=== PATIENT | male | born 1955 | race Caucasian/White ===

== ENCOUNTER 2017-06-24 06:30 | Inpatient (IN) ==
[2017-06-24] MEDS ORDERED: CARDIZEM ONE (06:35)
[2017-06-24] MEDS ORDERED: ASPIRIN PO STA (06:35)
[2017-06-24 06:44] LABS: MANUAL DIFF NEEDED? NO
[2017-06-24] MEDS ORDERED: CARDIZEM IV ONE ×2 (06:44→08:39)
[2017-06-24] MEDS: CARDIZEM 100 MG/NS 100 MG/100 ML IVPB IV SCH (06:45)
[2017-06-24 06:46] LABS: BASO% 0.5 % (0.0-0.8); EOS# 0.06 X1000 (0.0-0.7); EOS% 0.7 % (0.0-10.0); HEMATOCRIT 44.2 % (42.0-52.0); HEMOGLOBIN 15.7 g/dL (14.0-18.0); LYMPH# 1.53 X1000 (1.2-3.4); LYMPH% 18.1 % (20.5-51.1); MCH 34.6 PG (27-31); MCHC 35.5 g/dL (33-37); MCV 97.4 FL (81-99); MONO# 0.68 X1000 (0.11-0.59); MPV 11.8 FL (7.4-10.4); NEUT% 72.7 % (42.2-75.2); PLT 136 X1000 (130-400); RBC 4.54 XMIL (4.7-6.1)
[2017-06-24 07:02] LABS: AGAP 19; ALKALINE PHOSPHATASE 145 U/L (32-122); BUN 13 mg/dL (8-22); CALCIUM 9.3 mg/dL (8.8-10.2); CHLORIDE 98 mmol/L (98-107); COSMO 273; GOT 158 U/L (10-34); GPT 110 U/L (10-44); MAGNESIUM 1.6 mg/dL (1.5-2.7); SODIUM 136 mmol/L (136-145); TCO2 19 mmol/L (25-35); TOTAL PROTEIN 6.9 g/dL (6.3-8.3)
[2017-06-24 07:03] LABS: CK PROFILE 264 U/L (24-204)
[2017-06-24 07:11] LABS: INR 8.19; PROTIME 98.3 Seconds (9.2-11.7); PTT 43.7 Seconds (22.0-36.0)
[2017-06-24] MEDS ORDERED: VITAMIN K SUBQ ONE (07:14)
[2017-06-24 07:23] LABS: CK INDEX 2.5 (0.0-2.5); CK-MB 6.68 ng/mL (0.0-5.0)
--- NOTE | 2017-06-24 07:46 | PROVIDER DOCUMENTATION ---
HPI-Cardiac General - General Chief Complaint: Shortness of Breath Stated Complaint: sob Time Seen by Provider: 06/24/17 06:30 Source: patient, EMS Unable to obtain history due to:: urgency Allergies/Adverse Reactions: Patient Allergies Allergy/AdvReac Type Severity Reaction Status Date / Time No Known Allergies Allergy Verified 06/24/17 06:39 Home Medications: Home Medication List Medication Instructions Recorded Confirmed Last Taken Type Warfarin [Coumadin] 2 mg PO DAILY 08/24/14 06/24/17 06/23/17 History Metoprolol [Lopressor] 50 mg PO BID 11/16/16 06/24/17 06/23/17 History - History of Present Illness-Cardiac Nature of Presenting Problem: Patient has a history of dilated cardiomyopathy, pulmonary hypertension, and valvular heart disease. He presents with severe dyspnea. He denies any chest pain. He denies any trauma. He says he simply couldn't catch his breath. He sees Dr. Mccoy. Severity in ED: severe Onset/Duration: 1-3 hours ago Context/Activities at Onset: reports: none Modifying Factors: improves with: nothing Palpitation Quality: irregular History of arrythmia: reports: A-Fib Recent use of:: reports: no stimulants Nitro Today/Relief: reports: no nitro taken today Aspirin Treatment Today: reports: no aspirin today Prior Chest Pain/Cardiac Workup: reports: no prior chest pain Associated Symptoms: reports: denies symptoms Similar Symptoms Previously?: Yes Recently Seen Here or By Another Healthcare Provider: No Review of Systems - Adult - REVIEW OF SYSTEMS - ADULT Constitutional: reports: no symptoms reported Eyes: reports: no symptoms reported Ears, Nose, Mouth & Throat: reports: no symptoms reported Cardiovascular: reports: see HPI, irregular heart rate, palpitations Respiratory: reports: see HPI, dyspnea on exertion, shortness of breath Gastrointestinal: reports: no symptoms reported Genitourinary: reports: no symptoms reported Musculoskeletal: reports: no symptoms reported Integumentary: reports: no symptoms reported Neurological: reports: no symptoms reported Psychiatric: reports: no symptoms reported Endocrine: reports: no symptoms reported Hematologic/Lymphatic: reports: no symptoms reported Allergic/Immunologic: reports: no symptoms reported All Other Systems: Reviewed and Negative Past History - Adult - PAST MEDICAL HISTORY-ADULT Review of Records: reports: Old Records Reviewed, Nursing Assessment Review, Medications Reviewed, Social history reviewed & non-contributory. Major Childhood Illnesses: reports: denies history Cardiovascular: reports: HTN, hyperlipidemia, other (irregular heart beat) Respiratory: reports: denies history Gastrointestinal: reports: GERD Obstetrical/Gynecological: reports: denies history Genitourinary: reports: kidney disease Musculoskeletal: reports: intervertebral disc disease Neurological: reports: denies history Endocrine/Immune: reports: denies history Other Conditions: reports: denies history - PRIOR SURGERIES/PROCEDURES Surgical/Procedure History: reports: tonsillectomy - IMMUNIZATION STATUS Childhood Immunizations: See Nurse Assessment Flu Vaccine: See Nurse Assessment - FAMILY HISTORY Family History: reviewed, not pertinent Physical Exam-General - PHYSICAL EXAM-ADULT Initial Vital Signs Reviewed: Yes - CONSTITUTIONAL General Appearance: moderate distress - EYES Eyes: PERRL/EOMI - HEAD, EARS, NOSE, MOUTH & THROAT HENMT: normocephalic/atraumatic - NECK Neck: non-tender - RESPIRATORY Respiratory: chest non-tender, crackles, rhonchi, prolonged expiration, other ( ecchymosis on the left flank and back and lateral chest wall) - GASTROINTESTINAL (ABDOMEN) Abdominal Exam: normal bowel sounds, non tender - LYMPHATIC Lymphatic: no adenopathy - MUSCULOSKELETAL Back Exam: normal inspection, no CVA tenderness Extremity: normal range of motion - SKIN Integumentary: ecchymosis (left lateral chest wall) - NEUROLOGIC Neurologic: corporate manager II-XII nml as tested - PSYCHIATRIC Psych/Mental Status: normal mood/affect Progress - PLAN OF CARE/RESULTS Progress/Plan/Lab Results: Vital Signs - 8 hr 06/24/17 06:38 Temperature 97.4 F L Pulse Rate 153 H Respiratory Rate 28 H Blood Pressure 133/111 O2 Sat by Pulse Oximetry 91 L Laboratory Results - last 24 hr 06/24/17 06/24/17 06/24/17 06:15 06:15 06:15 WBC 8.45 RBC 4.54 L Hgb 15.7 Hct 44.2 MCV 97.4 MCH 34.6 H MCHC 35.5 RDW Std Deviation 14.4 Plt Count 136 MPV 11.8 H Immature Gran % (Auto) 0.0 Neut % (Auto) 72.7 Lymph % (Auto) 18.1 L [place] % (Auto) 8.0 Eos % (Auto) 0.7 Baso % (Auto) 0.5 Immature Gran # (Auto) 0.00 Neut # (Auto) 6.14 Lymph # (Auto) 1.53 [place] # (Auto) 0.68 H Eos # (Auto) 0.06 Baso # (Auto) 0.04 PT INR PTT (Actin FS) Sodium 136 Potassium 5.0 Chloride 98 Carbon Dioxide 19 L Anion Gap 19 BUN 13 Creatinine 1.0 Estimated GFR/1.73 m2 > 60 BUN/Creatinine Ratio 13 Glucose 124 H Calculated Osmolality 273 Calcium 9.3 Magnesium 1.6 Total Bilirubin 1.60 H AST 158 H ALT 110 H Alkaline Phosphatase 145 H Creatine Kinase 264 H Creatine Kinase Index 2.5 CK-MB (CK-2) 6.68 H Troponin T [id number] Pept 10357 H Total Protein 6.9 Albumin 4.0 Globulin 2.9 Albumin/Globulin Ratio 1.4 Plasma Lactate 06/24/17 06/24/17 06/24/17 06:15 06:15 07:34 WBC RBC Hgb Hct MCV MCH MCHC RDW Std Deviation Plt Count MPV Immature Gran % (Auto) Neut % (Auto) Lymph % (Auto) [place] % (Auto) Eos % (Auto) Baso % (Auto) Immature Gran # (Auto) Neut # (Auto) Lymph # (Auto) [place] # (Auto) Eos # (Auto) Baso # (Auto) PT 98.3 H INR 8.19 H* PTT (Actin FS) 43.7 H Sodium Potassium Chloride Carbon Dioxide Anion Gap BUN Creatinine Estimated GFR/1.73 m2 BUN/Creatinine Ratio Glucose Calculated Osmolality Calcium Magnesium Total Bilirubin AST ALT Alkaline Phosphatase Creatine Kinase Creatine Kinase Index CK-MB (CK-2) Troponin T < 0.010 Ckc-C-[id number] Pept Total Protein Albumin Globulin Albumin/Globulin Ratio Plasma Lactate 2.9 H Orders Category Date Time Status Cardiac Monitoring DIRECTED Care 06/24/17 06:35 Active Oxygen Therapy- ED Nursing DIRECTED Care 06/24/17 06:35 Active Saline Loc NOW Care 06/24/17 06:35 Active CHEST-PORTABLE [RAD] Stat Exams 06/24/17 06:36 Completed BLOOD CULTURE [BLDCUL] Stat Lab 06/24/17 08:22 Uncollected CBC WITH ELECTRONIC DIFF [HEME] Stat Lab 06/24/17 06:15 Completed CK PROFILE [SP CHEM] Stat Lab 06/24/17 06:15 Completed COMPREHENSIVE METABOLIC PANEL [CHEM] Stat Lab 06/24/17 06:15 Completed LACTATE, PLASMA [CHEM] Stat Lab 06/24/17 07:34 Completed MAGNESIUM [CHEM] Stat Lab 06/24/17 06:15 Completed PRO B-NATRIURETIC PEPTIDE Stat Lab 06/24/17 06:15 Completed PROTIME WITH INR [COAG] Stat Lab 06/24/17 06:15 Completed PTT [COAG] Stat Lab 06/24/17 06:15 Completed TROPONIN T Stat Lab 06/24/17 06:15 Completed URINALYSIS W/POSS RFLX CULT-1 [URINALYSIS] Stat Lab 06/24/17 08:22 Uncollected Aspirin Med 06/24/17 06:35 Discontinued 325 mg PO STAT STA CefTRIAXONE 1 GM/NS [Rocephin 1 gm/Ns] Med 06/24/17 08:21 Active 1 gm in 50 ml IV NOW Diltiazem 100 mg/Ns [Cardizem 100 mg/Ns] Med 06/24/17 06:45 Active 100 mg in 100 ml IV 5 mg/hr Diltiazem [Cardizem] Med 06/24/17 06:44 Discontinued 20 mg IV NOW ONE Diltiazem [Cardizem] Med 06/24/17 06:35 Discontinued 25 mg .ROUTE .STK-MED ONE Phytonadione [Vitamin K] Med 06/24/17 07:14 Discontinued 10 mg SUBQ NOW ONE EKG [EKG] Stat Ther 06/24/17 06:35 Ordered Result Diagrams: 06/24/17 06:15 06/24/17 06:15 - EKG 1 Time of EKG reading by physician:: 06:27 EKG Read and Signed by:: Humberto Mobley EKG Interpretation (*Must complete 3 of following elements*): Abnormal Rate: 158 Rhythm: afib NC Interval: shortened - XRAY 1 XRAY Study: Chest Impression: Abnormal (cardiomegaly with pulmonary venous congestion) Departure - Departure Date of Disposition Decision: 06/24/17 Time of Disposition Decision: 08:26 DIAGNOSIS: Coagulopathy, Sepsis, CHF (congestive heart failure) Disposition: ADMITTED INPATIENT 09 Certified Medical Emergency: Emergent Condition: Critical Referrals and Follow-Ups: Marcie Dejesus MD [Primary Care Provider] - - Critical Care Note This patient required my direct & personal management of CC.: Yes Total Time (mins): 50 Critical Care Statement: This patient required my direct personal management to treat or rule out processes, the absence of which, could potentiallly result in sudden, clinically significant life or limb threatening deterioration. Attestation - Physician/ TIFFANIE Attestation The physician spent face to face time with patient:: Yes Advanced Practice Provider documentation review:: Supervising physician onsite and consulted in the evaluation and care of this patient. The physician did have a face to face encounter with the patient.
[2017-06-24] MEDS ORDERED: ROCEPHIN 1 GM/NS 1 GM/50 ML IVPB IV ONE (08:21)
--- NOTE | 2017-06-24 08:26 | Diag Imaging Result Doc PS360 ---
EXAM: CHEST-PORTABLE - 06/24/2017 HISTORY: dyspnea TECHNIQUE: Portable chest 0710 COMPARISON: 08/25/2015 FINDINGS: Heart size appears mildly enlarged and increased compared to previous exam. There are bilateral interstitial opacities which are suspicious for interstitial edema. There is no dense consolidation, substantial pleural effusion, or pneumothorax identified. IMPRESSION: Mild cardiomegaly with interstitial edema, suggesting mild congestive heart failure. Electronically signed by Geraldo Durand 06/24/2017 8:23 AM
[2017-06-24 09:39] LABS: ALLEN TEST YES; BLOOD TYPE ARTERIAL; DRAW SITE L RADIAL; METHB 1.2 % (0.0-1.5); O2(CT) 20.3 mL/dL (15.0-23.0); PCO2(98.6) 20 mmHg (35-45); PO2(98.6) 109 mmHg (60-100); SAMPLE BLOOD; SAO2 99.6 % (95.0-100.0); THB 14.9 g/dL (11.5-17.4)
[2017-06-24 09:40] LABS: MODALITY CANNULA
[2017-06-24] MEDS ORDERED: LASIX IV ONE (09:48)
[2017-06-24] MEDS ORDERED: ZOFRAN IV PRN (09:48)
[2017-06-24 10:26] LABS: URINE CULTURE NEEDED? NO; URINE MICRO REVIEW NEEDED? NO; URINE SOURCE CLEAN CATCH
--- NOTE | 2017-06-24 10:28 | HISTORY AND PHYSICAL ---
PRIMARY CARE PHYSICIAN: Dr. Dejesus. PRIMARY EXEC. CREATIVE DIRECTOR: Dr. Dooley. CHIEF COMPLAINT: Shortness of breath. HISTORY OF PRESENT ILLNESS: This is a 61-year-old male with past medical history of dilated cardiomyopathy, paroxysmal atrial fibrillation, valvular heart disease, pulmonary hypertension, who presented to the emergency department complaining of shortness of breath. The patient reports that during the last 2-3 days, he is complaining of shortness of breath and dyspnea on exertions to minimal distance. He reports that from yesterday to today even going to the bathroom he becomes really short of breath. He reports also paroxysmal nocturnal dyspnea with episodes of 1-2 per night. He did not notice any swelling in both legs. He denies any fever or chills. He reports no change in his usual cough pattern. He reports some episodes of chest pain intermittent in the suprasternal area; that lasted approximately between 1-2 minutes. No relieving factors or aggravating factors. The patient had a recent stress test done in the office by Dr. Dooley. He is supposed to have another heart test next week. Here in the ER the workup revealed chest x-ray showing poor cardiomegaly and mild pulmonary congestion. No signs of pneumonia. Surprisingly, the lactate is high although the white cell count is normal, and the INR was elevated at 8.9. So, he was given vitamin K. The ABG shows good gas exchange with a little bit low CO2 that could be secondary to hyperventilation. The patient is going to be admitted for further evaluation and treatment. PAST MEDICAL HISTORY: 1. Dilated cardiomyopathy. We do not have any echo with recent ejection fraction. 2. Paroxysmal chronic atrial fibrillation on anticoagulation with warfarin. 3. Valvular heart disease. 4. Hyperlipidemia. 5. Gastroesophageal reflux disease. 6. Degenerative joint disease. PAST SURGICAL HISTORY: None. ALLERGIES: No known drug allergies. SOCIAL HISTORY: He usually drinks 1-1/2 to 2 beers two to three times per week. He quit smoking 3 months ago, but he was smoking since he was 16 one pack per day. He denies using any drugs. REVIEW OF SYSTEMS: Eleven systems were reviewed and all symptoms are related to H and P. FAMILY HISTORY: Positive for uncle with leukemia. PHYSICAL EXAMINATION: VITALS: Temperature 97.4 degrees, heart rate 91, respiratory rate 20, blood pressure 94/73, O2 saturation 95% on room air. GENERAL EXAMINATION: This is a 61-year-old, male, lying in bed in no acute distress. HEENT: Head is normocephalic, atraumatic. Anicteric sclerae and pale conjunctivae. Mucosal membranes moist. NECK: Supple. No JVD noted at 45 degrees. No carotid bruits. No lymphadenopathy. No thyromegaly. CARDIOVASCULAR EXAM: S1 and S2 heard. Irregularly irregular and tachycardic. There is also mild 3/6 systolic murmur in the aortic area. RESPIRATORY EXAM: Decreased breath sounds globally. Fine crackles noted in both bases. Patient is not using any accessory muscles and no work of breathing. ABDOMEN: Soft, nontender to palpation. Bowel sounds present. No organomegaly. EXTREMITIES: No clubbing, cyanosis, or edema. Peripheral pulses present in both legs. NEUROLOGICAL EXAM: Patient alert and oriented x3. Able to move 4 extremities. Cranial nerves 2- 12 grossly normal. LABORATORY DATA: The white cell count 8.25, hemoglobin 15.7, hematocrit 42.8, platelets 136. INR 8.19. ABG shows pH 7.5 with pCO2 20. BMP unremarkable except mild elevation of glucose 124 and elevation of AST 150 and ALT 110. Troponin first set is negative. ProBNP 16, 000 with lactate 2.9. ASSESSMENT AND PLAN: 1. Acute congestive heart failure.X-ray done in the emergency room reveals mild congestion with interstitial edema. Symptoms definitely suggest worsening congestive heart failure. We are going to rule out any acute coronary syndrome that may have triggered this worsening congestive heart failure. Troponins will be checked every 8 hours. We are going to do an echocardiogram if not a recent one is available. Will try to pull out the recent [facility] test [facility]. We are going to consult Dr. Dooley from cardiology. Even though the blood pressure is borderline in the range of 100-90 systolic blood pressure, I prefer to start one dose of Lasix 60 mg intravenous. We are going to transfer this patient to the intensive care unit to see if the blood pressure drops and he may need to be on vasopressors. 2. Chronic atrial fibrillation. Heart rate has been in the range of 130s and 140s. He received one dose of Cardizem 10 mg intravenous, and apparently blood pressure has dropped a little bit. As we mentioned before, I prefer to keep this patient in the unit because we may need to use a Cardizem drip and, if blood pressure drops, vasopressors will be needed. 3. Supratherapeutic INR. The patient has been given already in the emergency room one dose of vitamin K. We are going to check INR daily. Will restart warfarin to keep INR between 2 and 3. 4. Dilated cardiomyopathy. We are going to check an echocardiogram. 5. Tobacco abuse. The patient reported that he quit 3 months ago although the physical examination revealed decreased breath sounds globally. We will provide DuoNeb breathing treatment as needed for shortness of breath. 6. Degenerative joint disease. We will provide pain medication as needed. Further recommendations to follow according to clinical situation of the patient. cc: Justin Arias MD MTDD
[2017-06-24 10:38] LABS: BILIRUBIN URINE NEGATIVE (NEGATIVE); BLOOD URINE NEGATIVE (NEGATIVE); COLOR ORANGE; GLUCOSE URINE NEGATIVE (NEGATIVE); LEUKOCYTES URINE NEGATIVE (NEGATIVE); NITRITE URINE NEGATIVE (NEGATIVE); PH URINE 5.5; PROTEIN URINE 100 mg/dL (NEGATIVE); SP GRAVITY URINE 1.022; TURBIDITY URINE CLEAR (CLEAR); UROBILINOGEN URINE 2 mg/dL (NORMAL)
[2017-06-24 10:40] LABS: UR EPITHELIAL CELLS <10 /HPF (<10); URINE BACTERIA NEGATIVE /HPF; URINE RBC <10 /HPF (<10); URINE WBC <10 /HPF (<10)
--- NOTE | 2017-06-24 10:55 | Diag Imaging Result Doc PS360 ---
EXAM: THORAX/ABDOMEN/PELVIS - 06/24/2017 HISTORY: sepsis, pna, elevated LFT TECHNIQUE: With intravenous contrast only per request the referring provider. Dose reduction protocol. COMPARISON: None. FINDINGS: CT thorax: There is mild cardiomegaly. There are small right and tiny left pleural effusions. There is mild generalized interstitial marking prominence. There is no dense consolidation or pneumothorax identified. 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 CT abdomen and pelvis: There is hepatomegaly with fatty infiltration of the liver. There is no focal liver lesion identified. The spleen is low normal in size. The adrenal glands and pancreas are unremarkable. The gallbladder grajeda appear mildly thickened. There are no calcified gallstones identified. There is minimal ascites. The bilateral kidneys enhance homogeneously. There is no hydronephrosis. There are no substantial enlarged lymph nodes identified. There is no evidence of bowel obstruction. The appendix appears normal. There is no substantial bowel wall thickening identified. There is no free air or abscess identified. Images of pelvis show some diffuse thickening of the urinary bladder grajeda with hazy external margins. The possibility of urinary bladder cystitis cannot be excluded. The seminal vesicles are symmetrically prominent but show no gross surrounding inflammation. There are lumbar spine degenerative changes noted. IMPRESSION: CT thorax: Findings which are suggestive of mild congestive heart failure. No discrete pneumonia. CT abdomen and pelvis: Hepatomegaly with fatty infiltration of the liver. No focal liver lesion. Minimal ascites. Mildly thickened gallbladder grajeda. No calcified gallstones. Apparent urinary bladder cystitis. Questionable seminal vesiculitis. No hydronephrosis. No bowel obstruction. No abscess. No free air. Electronically signed by Geraldo Durand 06/24/2017 10:52 AM
[2017-06-24] MEDS ORDERED: LOPRESSOR PO ONE (13:12)
[2017-06-24] MEDS ORDERED: LANOXIN IV ONE (13:12)
[2017-06-24] MEDS: PRILOSEC PO SCH (13:32)
--- NOTE | 2017-06-24 14:28 | CONSULTATION ---
DATE OF CONSULTATION: 06/24/2017 IMPRESSION: 1. Acute on chronic systolic heart failure. 2. Severe nonischemic cardiomyopathy. 3. Atherosclerotic coronary disease with mild to moderate atherosclerotic plaque in proximal left anterior descending coronary artery by coronary angiography October 2012. At that time patient had severe cardiomyopathy which was apparently nonischemic. 4. Chronic atrial fibrillation. 5. Mitral regurgitation, mild by most recent echocardiography study. 6. Hypertension. 7. Hyperlipidemia. 8. Cigarette use discontinued a few months ago. 9. Regular alcohol use. RECOMMENDATIONS: 1. Diurese with intravenous Lasix. 2. Control heart rate with increased dose of metoprolol and addition of digoxin. 3. As patient improves will institute angiotensin receptor blocking agent. 4. Continue anticoagulation with warfarin. 5. The patient counseled to abstain from alcohol use. HISTORY: This 61-year-old white male with past history of severe cardiomyopathy (nonischemic) with left ventricular ejection fraction severely depressed in 2011 at which time he had mild to moderate atherosclerotic plaque in left anterior descending coronary by coronary angiography, later improvement left ventricular ejection fraction by echocardiography in November 2015, more recent echocardiography indicated left ejection fraction 10-15%, mitral regurgitation, chronic atrial fibrillation, hypertension, previous cigarette use, and hyperlipidemia was admitted to emergency room with acute on chronic systolic heart failure. Patient has been fairly stable with respect to his nonischemic cardiomyopathy and atherosclerotic coronary disease as well as chronic atrial fibrillation. He has been managed with metoprolol, anticoagulation with warfarin and digoxin but did not require diuretic therapy. He was recently seen for followup and had noninvasive cardiac evaluation obtained. Stress myocardial perfusion imaging with Lexiscan sestamibi study indicated left ventricular enlargement, severely depressed left ventricular ejection fraction of 13%, and no indication of inducible myocardial ischemia. Echocardiography on the same date indicated left ventricular ejection fraction 10-15% with mild mitral regurgitation. The patient's left ventricular ejection fraction had decreased significantly from previous echocardiography November 2015 which indicated left ventricular ejection fraction of 50%. The patient was contacted and urged to return as soon as possible for followup. He was to be seen earlier this week but did not present for clinic appointment. Over the last several days he has developed progressive shortness of breath with modest exertion. Relates seemed to get short of breath just walking from his bedroom to the living room in his house. He has also started to have orthopnea. There has been no angina. He notes occasional palpitations. With progressive dyspnea this morning he summoned an ambulance to bring him to the hospital. He was found to have evidence of acute on chronic systolic heart failure. Diuretic therapy has been initiated. Atrial fibrillation was present with increased ventricular rate response. Patient relates that he usually drinks perhaps 18 beers a week but has significant cut back lately. He relates that over the past week he has only drank 1-1/2 beers. He does not smoke having quit several months ago. PAST MEDICAL HISTORY: 1. Nonischemic cardiomyopathy. 2. Atherosclerotic coronary disease. 3. Chronic atrial fibrillation. 4. Mitral regurgitation. 5. Hypertension. 6. Hyperlipidemia. PAST SURGICAL HISTORY: None. MEDICATIONS: Prior to admission include warfarin and metoprolol. SOCIAL HISTORY: He no longer works. 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 He quit smoking several months ago. He drinks alcohol on a regular basis consuming beer but has just recently cut back. FAMILY HISTORY: Negative for premature coronary disease. REVIEW OF SYSTEMS: Pulmonary: Noteworthy for dyspnea and orthopnea but otherwise negative. Gastrointestinal: Negative beyond history of present illness. Constitutional: Negative beyond history of present illness. Remainder review of systems negative beyond history of present illness with 14 total systems reviewed. PHYSICAL EXAMINATION: General: This is an older middle-aged male in no distress. Vital Signs: Include a blood pressure of 100/48, heart rate 115-140 with ECG monitor showing atrial fibrillation. HEENT: Extraocular movements intact. Mucous membranes moist. Neck: Supple. Jugular venous distention is evident with estimated JVP of 12 cm. Carotid bruits cannot be appreciated. Chest: Auscultation of the chest reveals bibasilar inspiratory crackles. Cardiac Exam: Reveals an irregular tachycardia without appreciable murmur or gallop. Abdomen: Soft, nontender. Bowel sounds are normal. Extremities: Without edema. Neurologic Exam: Reveals him to be alert, fully oriented. Speech is fluent. Moves all 4 extremities equally well. Skin: Warm, dry. Psychiatric: Reveals mood to be appropriate. DIAGNOSTIC DATA: ECG monitor shows atrial fibrillation with increased ventricular rate response. cc: Og Dooley MD
[2017-06-24] MEDS: LASIX IV SCH (20:10)
[2017-06-24] MEDS: DUONEB (A & A) INH PRN (20:17)
[2017-06-25] MEDS: CARDIZEM 100 MG/NS 100 MG/100 ML IVPB IV SCH ×3 (02:00→22:27)
[2017-06-25 07:01] LABS: AGAP 16; BUN 14 mg/dL (8-22); CALCIUM 8.4 mg/dL (8.8-10.2); CHLORIDE 96 mmol/L (98-107); COSMO 277; POTASSIUM 3.3 mmol/L (3.5-5.1); SODIUM 139 mmol/L (136-145); TCO2 27 mmol/L (25-35)
[2017-06-25 07:22] LABS: INR 2.67; PROTIME 29.8 Seconds (9.2-11.7)
[2017-06-25] MEDS: DUONEB (A & A) INH PRN (07:34)
[2017-06-25] MEDS ORDERED: KLOR-CON PO ONE ×2 (07:41→12:55)
[2017-06-25] MEDS: PRILOSEC PO SCH (08:32)
[2017-06-25] MEDS: LASIX IV SCH ×2 (08:32→20:07)
[2017-06-25 09:17] LABS: MANUAL DIFF NEEDED? NO
[2017-06-25 09:19] LABS: BASO% 0.4 % (0.0-0.8); EOS# 0.09 X1000 (0.0-0.7); EOS% 1.2 % (0.0-10.0); HEMATOCRIT 42.7 % (42.0-52.0); LYMPH# 1.02 X1000 (1.2-3.4); LYMPH% 13.3 % (20.5-51.1); MCH 34.1 PG (27-31); MCHC 35.1 g/dL (33-37); MONO# 0.47 X1000 (0.11-0.59); MONO% 6.1 % (1.7-9.3); MPV 11.4 FL (7.4-10.4); PLT 115 X1000 (130-400)
[2017-06-25 09:38] LABS: ALBUMIN 3.4 g/dL (3.5-5.0); DIRECT BILIRUBIN 0.7 mg/dL (0.00-0.20); TOTAL BILIRUBIN 2.47 mg/dL (0.20-1.00); TOTAL PROTEIN 6.1 g/dL (6.3-8.3)
--- NOTE | 2017-06-25 11:35 | PROGRESS NOTE ---
DATE: 06/25/2017 SUBJECTIVE: Patient is still complaining of shortness of breath and palpitations. Denies any fever or chills. Denies any chest pain. OBJECTIVE: Vital Signs: Temperature 99.0 degrees, heart rate 99, respiratory rate 18, blood pressure 99/72, O2 saturation 95% on 4 L nasal cannula. General: This is a 61-year-old male, lying in bed, in no acute distress. HEENT: Head is normocephalic, atraumatic. Anicteric sclerae, pale conjunctivae. Mucous membranes moist. Neck: Supple. No JVD noted. No carotid bruits. No lymphadenopathy. No thyromegaly. Cardiovascular: S1, S2 heard. Irregularly irregular heart rhythm. No murmurs, gallops, or rubs. Respiratory: Bibasilar crackles. Patient is not using any accessory muscles or having work of breathing. Abdomen: Soft, nontender to palpation. Bowel sounds present. No organomegaly. Extremities: No clubbing, cyanosis, or edema. Peripheral pulses present in both legs. Neurological: Patient is alert and oriented x3. Able to move all 4 extremities. Cranial nerves 2-12 grossly normal. LABORATORY DATA: The CBC and BMP is completely unremarkable, except potassium 3.3. There is an improvement in the liver function tests, AST 80 and ALT 80 today. ASSESSMENT AND PLAN: 1. [id number] systolic heart failure. At this point, we are going to continue with Lasix. Currently, he is receiving 40 mg of Lasix IV twice daily. Ins and outs indicate that he has moved approximately 5.5 L of urine. We will continue with the same management. 2. Severe nonischemic cardiomyopathy. Apparently, the ejection fraction on last echocardiogram in November 2015 was 10-15%, with mitral regurgitation and chronic atrial fibrillation. At this time, we will leave to Cardiology to see if this patient is a candidate for an implantable cardiac defibrillator. Cardiology is following. 3. Chronic atrial fibrillation. The heart rate is erratic today, with sometimes the patient has been between 100 and 120. That heart rate can jump up to 180, so I prefer to start a Cardizem drip on this patient. 4. Hypertension. The blood pressure is now borderline. I am doubtful about starting metoprolol in this patient. We will see first after we start Cardizem drip how the blood pressure goes. 5. Supratherapeutic INR. INR today is between 2 and 3, so we are going to continue checking INR daily. We are going to restart Coumadin. 6. Hyperlipidemia. We will continue with home medication. 7. Coronary artery disease. Aware. No chest pain noted. 8. Alcohol abuse. Patient advised to stop drinking alcohol. The patient explained about the consequences of drinking alcohol. cc: Justin Arias MD
[2017-06-25] MEDS ORDERED: LANOXIN IV ONE (12:56)
[2017-06-25] MEDS: LOPRESSOR PO SCH ×2 (14:29→20:09)
--- NOTE | 2017-06-25 16:25 | PROGRESS NOTE ---
DATE: 06/25/2017 SUBJECTIVE: Patient relates feeling better. He denies shortness of breath or chest discomfort on supplemental oxygen per nasal cannula. OBJECTIVE: Vital Signs: Blood pressure 102/79, heart rate 100-110 and irregular with ECG monitor showing atrial fibrillation. Neck: There is no significant jugular venous distention. Chest: Auscultation of the chest reveals bibasilar inspiratory crackles. Cardiac: Reveals an irregular rate and rhythm without appreciable murmur or gallop. There is no evidence of peripheral edema. LABORATORY DATA: Includes INR 2.67, potassium 3.3, BUN 14, creatinine 1.1. IMPRESSION: 1. Acute on chronic systolic heart failure, improving with diuresis. 2. Atrial fibrillation. Rate currently controlled with aid of intravenous Cardizem. 3. Severe nonischemic cardiomyopathy. 4. Mild to moderate coronary atherosclerosis in proximal left anterior descending coronary artery by coronary angiography in October 2012. The patient had severe cardiomyopathy at that time which was apparently nonischemic. 5. Mild mitral regurgitation. 6. Hypertension. 7. Hyperlipidemia. RECOMMENDATIONS: 1. Continue diuresis. 2. Resume metoprolol and digoxin to facilitate weaning off of intravenous Cardizem for rate control. 3. Supplement potassium. 4. Maintain anticoagulation with warfarin. 5. Patient advised to abstain from any further alcohol use. 6. Consider addition of angiotensin receptor blocking agent. cc: Og Dooley MD
[2017-06-25] MEDS: COUMADIN PO SCH (20:07)
[2017-06-26 06:42] LABS: MANUAL DIFF NEEDED? NO
[2017-06-26 06:45] LABS: BASO% 0.3 % (0.0-0.8); EOS# 0.11 X1000 (0.0-0.7); EOS% 1.5 % (0.0-10.0); HEMATOCRIT 44.7 % (42.0-52.0); HEMOGLOBIN 15.8 g/dL (14.0-18.0); LYMPH# 1.44 X1000 (1.2-3.4); LYMPH% 19.5 % (20.5-51.1); MCH 34.4 PG (27-31); MCHC 35.3 g/dL (33-37); MCV 97.4 FL (81-99); MONO# 0.79 X1000 (0.11-0.59); MONO% 10.7 % (1.7-9.3); MPV 11.2 FL (7.4-10.4); PLT 136 X1000 (130-400); RBC 4.59 XMIL (4.7-6.1)
[2017-06-26 07:08] LABS: AGAP 15; BUN 16 mg/dL (8-22); CALCIUM 8.4 mg/dL (8.8-10.2); CHLORIDE 94 mmol/L (98-107); COSMO 279; POTASSIUM 3.4 mmol/L (3.5-5.1); SODIUM 139 mmol/L (136-145); TCO2 30 mmol/L (25-35)
[2017-06-26 07:11] LABS: INR 1.42; PROTIME 15.3 Seconds (9.2-11.7)
--- NOTE | 2017-06-26 07:23 | EKG Report ---
Test Performed on : 06/24/2017 06:26:04 AM Test Reason : NO ORDER Blood Pressure : / mmHG Vent. Rate : 158 BPM Atrial Rate : 166 BPM P-R Int : 000 ms QRS Dur : 092 ms QT Int : 248 ms P-R-T Axes : 000 -49 118 degrees QTc Int : 402 ms Atrial fibrillation. with rapid ventricular response. Left anterior fascicular block Nonspecific ST and T wave abnormality Abnormal ECG When compared with ECG of 07-MAR-2014 23:14, Vent. rate has increased BY 89 BPM Left anterior fascicular block is now present Nonspecific T wave abnormality now evident in Anterolateral leads Unconfirmed Result
[2017-06-26] MEDS: DUONEB (A & A) INH PRN ×5 (07:28→22:54)
[2017-06-26] MEDS: LOPRESSOR PO SCH ×3 (08:51→21:11)
[2017-06-26] MEDS: PRILOSEC PO SCH (08:51)
[2017-06-26] MEDS: LANOXIN PO SCH (08:51)
[2017-06-26] MEDS: LASIX IV SCH (10:14)
[2017-06-26] MEDS: LOVENOX SUBQ SCH ×3 (10:15→21:11)
[2017-06-26] MEDS ORDERED: KLOR-CON PO ONE (13:13)
--- NOTE | 2017-06-26 15:53 | PROGRESS NOTE ---
DATE: 06/26/2017 SUBJECTIVE: Patient reports having less shortness of breath. No palpitations noted. He denies any chest pain. OBJECTIVE: Vital Signs: Temperature 97.6 degrees, heart rate 113, respiratory rate 19, blood pressure 106/65, O2 saturation 99% on 4 L nasal cannula. General Examination: This is a 61-year- old male, lying in bed, in no acute distress. HEENT: Head is normocephalic, atraumatic. Anicteric sclerae and pale conjunctivae. Mucous membranes moist. Neck: Supple. JVD noted. No carotid bruits. No lymphadenopathy. No thyromegaly. Cardiovascular: S1, S2 heard. Irregularly irregular heart rhythm. No murmurs, gallops, or rubs. Respiratory: Bibasilar crackles noted, but less in comparing with previous days. Patient is not using any accessory muscles or having work of breathing. Abdomen: Soft, nontender to palpation. Bowel sounds present. No organomegaly. Extremities: No clubbing, cyanosis, or edema. Peripheral pulses present in both legs. Neurological: Patient alert and oriented x3. Able to move her extremities. Cranial nerves grossly normal. LABORATORY DATA: CBC is unremarkable. INR 1.42. BMP shows potassium 3.4. ASSESSMENT AND PLAN: 1. Acute on chronic systolic heart failure. The patient is responding to that therapy. Currently he is receiving Lasix 40 mg IV twice daily. In's and outs indicate that he so far has been moving a good amount of urine. We are going to continue with the same management. 2. Severe nonischemic cardiomyopathy. The last ejection fraction that we know of, he has 10-15% ejection fraction. Cardiology is following this patient. We will refer Cardiology to see if this patient is a good candidate for implantable cardiac defibrillator. 3. Chronic atrial fibrillation. Initially this patient was started on Cardizem drip. Cardiology recommended to start resuming metoprolol and digoxin and finally the Cardizem drip was stopped yesterday. Heart rate is well controlled. Although sometimes he had episodes when the heart rate went to 160. We are going to transfer this patient to [facility] just in case we need to restart Cardizem drip. 4. Hypertension. Blood pressure is borderline in the range of 100. Patient has been restarted on metoprolol. We will check vitals every 6 hours. 5. Supratherapeutic INR. Actually the INR is subtherapeutic now. At this time, we are going to continue with the same dose of warfarin and patient has been started full anticoagulation with Lovenox while we will wait for INR to fall within normal limits. 6. Hyperlipidemia. We will continue home medications. 7. Coronary artery disease, aware. No chest pain noted 8. Alcohol abuse. Patient advised to stopped drinking alcohol. cc: Justin Arias MD
--- NOTE | 2017-06-26 15:56 | PROGRESS NOTE ---
DATE: 06/26/2017 SUBJECTIVE: Patient relates feeling considerably better. He has some cramping in the legs. He denies dyspnea or chest discomfort on supplemental oxygen per nasal cannula. OBJECTIVE: Vital Signs: Blood pressure 106/65, heart rate 100 and irregular with ECG monitor showing atrial fibrillation. Oxygen saturation 99% on nasal cannula oxygen. Neck: There is no significant jugular venous distention. Chest: Is clear to auscultation. Cardiac exam: Reveals an irregular rate and rhythm without appreciable murmur or gallop. There is no evidence of peripheral edema. LABORATORY DATA: Includes potassium 3.4, BUN 16, creatinine 1.0. IMPRESSION: 1. Acute on chronic systolic heart failure, improving with diuresis. 2. Atrial fibrillation. Rate controlled. Intravenous Cardizem has been stopped. 3. Severe nonischemic cardiomyopathy. 4. Mild to moderate coronary atherosclerosis. 5. Mild mitral regurgitation. 6. Hypertension. 7. Hyperlipidemia. 8. Significant alcohol use in the past recently curtailed. RECOMMENDATIONS: 1. Transition to oral Lasix. 2. Continue metoprolol and digoxin. 3. Maintain anticoagulation. INR subtherapeutic today. Will initiate Lovenox b.i.d. 4. Add low-dose angiotensin receptor blocking agent valsartan 40 mg daily. 5. Reasonable transfer patient to telemetry. cc: Og Dooley MD
[2017-06-26] MEDS: ULTRAM PO PRN ×2 (16:27→19:55)
[2017-06-26] MEDS: COUMADIN PO SCH ×2 (19:55→21:11)
[2017-06-26] MEDS: ROBAXIN PO SCH (21:41)
[2017-06-27 05:07] LABS: MANUAL DIFF NEEDED? NO
[2017-06-27 05:11] LABS: BASO% 0.4 % (0.0-0.8); EOS# 0.21 X1000 (0.0-0.7); EOS% 2.5 % (0.0-10.0); HEMATOCRIT 42.9 % (42.0-52.0); HEMOGLOBIN 14.9 g/dL (14.0-18.0); IMM GRAN# 0.02 X1000 (0.0-0.04); IMM GRAN% 0.2 % (0.0-0.5); LYMPH# 1.72 X1000 (1.2-3.4); LYMPH% 20.6 % (20.5-51.1); MCH 34.3 PG (27-31); MCHC 34.7 g/dL (33-37); MCV 98.6 FL (81-99); MONO# 1.47 X1000 (0.11-0.59); MONO% 17.6 % (1.7-9.3); MPV 10.7 FL (7.4-10.4); NEUT% 58.7 % (42.2-75.2); PLT 150 X1000 (130-400); RBC 4.35 XMIL (4.7-6.1)
[2017-06-27 05:36] LABS: INR 1.18; PROTIME 12.5 Seconds (9.2-11.7)
[2017-06-27 06:02] LABS: AGAP 12; BUN 17 mg/dL (8-22); CALCIUM 8.4 mg/dL (8.8-10.2); CHLORIDE 91 mmol/L (98-107); COSMO 266; POTASSIUM 3.7 mmol/L (3.5-5.1); SODIUM 132 mmol/L (136-145); TCO2 29 mmol/L (25-35)
[2017-06-27] MEDS: LASIX PO SCH (08:56)
[2017-06-27] MEDS: LOPRESSOR PO SCH ×2 (08:56→20:03)
[2017-06-27] MEDS: ULTRAM PO PRN ×2 (08:56→20:02)
[2017-06-27] MEDS: DIOVAN PO SCH (08:56)
[2017-06-27] MEDS: ROBAXIN PO SCH ×2 (08:57→20:03)
[2017-06-27] MEDS: PRILOSEC PO SCH (08:57)
[2017-06-27] MEDS: LANOXIN PO SCH (08:57)
[2017-06-27] MEDS: LOVENOX SUBQ SCH ×2 (08:58→20:03)
[2017-06-27] MEDS: DUONEB (A & A) INH PRN ×2 (09:37→22:33)
--- NOTE | 2017-06-27 13:59 | PROGRESS NOTE ---
DATE: 06/27/2017 SUBJECTIVE: Patient denies dyspnea or chest discomfort. He is on room air. OBJECTIVE: Vital Signs: Blood pressure 103/84, heart rate 84 and irregular with ECG monitor showing atrial fibrillation. Neck: There is no significant jugular venous distention. Chest: Clear to auscultation. Cardiac Exam: Reveals an irregular rate and rhythm without appreciable murmur or gallop. There is no evidence of peripheral edema. LABORATORY DATA: Includes hematocrit 42.9. INR 1.2. BUN 17, creatinine 0.9. IMPRESSION: 1. Acute on chronic systolic heart failure, improved with diuresis. 2. Atrial fibrillation. Rate controlled. 3. Severe nonischemic cardiomyopathy. 4. Mild to moderate coronary atherosclerosis. 5. Mild mitral regurgitation. 6. Hypertension. 7. Hyperlipidemia. 8. Significant alcohol use in the past, recently curtailed. RECOMMENDATIONS: 1. Continue Lasix orally. 2. Continue metoprolol and digoxin. 3. Maintain anticoagulation. INR persistently subtherapeutic following recent dose of vitamin K. Continue Lovenox. 4. Continue low-dose angiotensin receptor blocking agent, valsartan. 5. Reasonable to discharge the patient soon from cardiology standpoint. He will need to continue Lovenox 1 mg/kg subcu q.12 until his INR becomes therapeutic with warfarin. Follow-up with me in approximately 10-14 days after discharge. cc: Og Dooley MD
--- NOTE | 2017-06-27 17:13 | PROGRESS NOTE ---
DATE: 06/27/2017 Today Mr. Oakley refers to be doing a lot better. Shortness of breath has improved. OBJECTIVE: Vital signs: Blood pressure is 86/50, pulse of 105, respirations 20, temperature is 98.7 degrees. General: Mr. aOkley is a 61-year-old male. He is in bed, not in any remarkable distress. HEENT: Mucosa is pink and moist. Anicteric. Acyanotic. Neck: Supple. Mild JVD was noted. Chest: Air entry is bilaterally reduced. There are a few bibasilar crepitations. Cardiovascular: Irregularly irregular but rate controlled. Abdomen: Soft. Extremities: No pedal edema. [employer]: Patient is awake and alert and oriented. LABORATORY DATA: CBC has been reviewed, unremarkable. Chemistry is reviewed. Sodium is 132, and magnesium is 1.3. A CT scan of the abdomen, pelvis and chest that was some done on admission showed mild congestive heart failure, hepatomegaly with fatty infiltration of the liver. ASSESSMENT: 1. Acute on chronic systolic heart failure. 2. Severe nonischemic cardiomyopathy. A stress test which was done on of last month however shows that there is some segments of the apex which shows some reversibility suggestive of induced ischemia. Patient has an ejection fraction of 10-15% and is being seen by Cardiology. I think somewhere along the line patient will need a left heart catheterization as well as evaluation for AICD. 3. Chronic atrial fibrillation. 4. Hypertension. 5. Subtherapeutic INR on Coumadin. 6. Alcohol abuse. So I think in general Mr. Oakley is doing fine. Think his INR continues to be subtherapeutic on Coumadin. There is the recommendation for him to be discharged on Lovenox until INR is therapeutic. I think we will get all these arranged tomorrow first thing in the morning and get him discharged. cc: Aguilar Roca MD
[2017-06-27] MEDS: COUMADIN PO SCH (20:03)
[2017-06-28] MEDS: DUONEB (A & A) INH PRN (02:55)
[2017-06-28 05:11] LABS: MANUAL DIFF NEEDED? NO
[2017-06-28 05:16] LABS: BASO% 0.4 % (0.0-0.8); EOS% 2.6 % (0.0-10.0); HEMATOCRIT 42.9 % (42.0-52.0); HEMOGLOBIN 14.5 g/dL (14.0-18.0); LYMPH# 1.38 X1000 (1.2-3.4); MCH 33.7 PG (27-31); MCHC 33.8 g/dL (33-37); MCV 99.8 FL (81-99); MONO# 1.51 X1000 (0.11-0.59); MONO% 19.7 % (1.7-9.3); MPV 10.6 FL (7.4-10.4); NEUT% 59.3 % (42.2-75.2); PLT 154 X1000 (130-400)
[2017-06-28 05:31] LABS: INR 1.16; PROTIME 12.3 Seconds (9.2-11.7)
[2017-06-28 05:34] LABS: AGAP 12; BUN 18 mg/dL (8-22); CALCIUM 8.4 mg/dL (8.8-10.2); CHLORIDE 90 mmol/L (98-107); COSMO 265; POTASSIUM 4.1 mmol/L (3.5-5.1); SODIUM 131 mmol/L (136-145); TCO2 29 mmol/L (25-35)
[2017-06-28] MEDS: ULTRAM PO PRN ×2 (08:40→13:00)
[2017-06-28] MEDS: LOVENOX SUBQ SCH (08:40)
[2017-06-28] MEDS: LANOXIN PO SCH (08:45)
[2017-06-28] MEDS: ROBAXIN PO SCH (08:45)
[2017-06-28] MEDS: PRILOSEC PO SCH (08:46)
[2017-06-28] MEDS: LOPRESSOR PO SCH (08:46)
[2017-06-28] MEDS: DIOVAN PO SCH (08:46)
[2017-06-28] MEDS: LASIX PO SCH (10:44)
[2017-06-28 11:34] VITALS: BP 94/66
[2017-06-28] MEDS ORDERED: COUMADIN PO SCH (21:00)
--- NOTE | 2017-06-29 14:27 | DISCHARGE SUMMARY ---
ADMISSION DATE: 06/24/2017 DISCHARGE DATE: 06/28/2017 CONSULTATIONS: Dr. Og Dooley with Cardiology. PERTINENT PROCEDURES: Chest, abdomen and pelvis CT showed mild congestive heart failure. No discrete pneumonia. Hepatomegaly with fatty infiltration of the liver. No focal liver lesion. Minimal ascites. Mildly thickened gallbladder. No gallstones. Urinary bladder cystitis. Questionable seminal vesiculitis. No bowel obstruction. No abscess. No free air. DISCHARGE DIAGNOSES: 1. Acute on chronic systolic heart failure. The patient has improved with therapy. 2. Severe nonischemic cardiomyopathy. The patient had a recent stress test done on 06/05 that showed segments of apex which showed some reversibility suggesting of induced ischemia with an EF of 10-15%. At some point, he will need a left heart catheterization and evaluation for AICD. Follow up with Dr. Dooley in 10-14 days. 3. Chronic atrial fibrillation. Continue on home medications. 4. Hypertension. Continue home medications. 5. Supratherapeutic INR on Coumadin has now been corrected. The patient is now subtherapeutic. He will be going home on Coumadin as well as Lovenox injections. He will have his INR checked on Saturday 06/30 in the morning and the [facility] will call him with follow up instructions. 6. Alcohol abuse in the past. 7. Tobacco abuse, however, the patient reports she quit smoking 3 months ago. We encouraged him daily to continue smoking cessation. HOSPITAL COURSE: Mr. Oakley is a 61-year-old male with a past medical history of ischemic cardiomyopathy, paroxysmal atrial fibrillation, vascular heart disease, and pulmonary hypertension who presented to the ED with shortness of breath that had been ongoing for 2-3 days. Also dyspnea on exertion. He reported some episodes of chest pain that were intermittent in the substernal area that lasted 1-2 minutes. No alleviating or aggravating factors. He had a recent stress test done in May. Workup in the ED showed cardiomegaly and mild pulmonary congestion. He was also found to be supratherapeutic with an INR of 8.9. He was given vitamin K. He was initiated on IV Lasix for exacerbation of his heart failure and ruled out for acute coronary syndrome with serial enzymes. Cardiology was consulted. His PT and INR's were monitored daily. Continued on heart rate control with beta-blockers and digoxin. We were able to restart his Coumadin therapy. The patient did go back in atrial fibrillation with RVR. He did have to be initiated on a Cardizem drip on CIC. He was able to be weaned off the Cardizem drip to resume his metoprolol and digoxin. He was transitioned to oral Lasix. He still remains subtherapeutic on his INR. He was initiated on Lovenox b.i.d. and added a low-dose Jason to his regimen. The patient has diuresed well. His heart rate has stabilized. Hemodynamically, he is stable for discharge. INR is subtherapeutic. He will be discharged on Coumadin and Lovenox. He will follow up with Dr. Dooley in 10-14 days. I spoke with the [facility]. They want him to come in to [facility] on Saturday 06/30 early in the morning to have his PT and INR checked. They will call him with further instructions when they get his results. The patient is aware. VITAL SIGNS: Temperature is 98.4 degrees, heart rate 102, respirations 16, blood pressure 94/66 and O2 is 96% on room air. DISCHARGE DIET: Healthy heart. DISCHARGE MEDICATIONS: 1. Digoxin 250 mcg p.o. daily. 2. Lovenox 60 mg subcutaneous q.12 hours for 10 days. 3. Lasix 40 mg p.o. daily. 4. Robaxin 750 mg p.o. b.i.d. 5. Lopressor 50 mg p.o. b.i.d. 6. Prilosec 40 mg p.o. daily. 7. Diovan 40 mg p.o. daily. 8. Coumadin 3 mg p.o. at bedtime. FOLLOWUP: Mr. Oakley is being discharged back home. He will follow up for his PT and INR check at [facility] early Monday morning. The [facility] will call him for further instructions. He will follow up with Dr. Dooley on 07/11/2017 at 10:30 in the morning. He will follow up with Dr. Dejesus in 1-2 weeks. The patient can return to the ED for any worsening of symptoms. TIME SPENT: Discharge time greater than 30 minutes. Dictated by JOSEFINA Turner for Aguilar Roca MD cc: MD Marcie Ferrer MD
== END 2017-06-28 15:20 | disposition home or self-care (01) ==
LOC: SUPCPDRO → ED 06:30 → SUATTDRO 12:23 → ICU 12:23 → 3S 06-26 16:07
PROVIDERS: ATTEND Internal Medicine